=== PATIENT | male | born 1940 | race Caucasian/White ===

== ENCOUNTER 2016-05-21 10:53 | Emergency (ER) | payer MEDICARE, BC ==
[~2016-05-21] VITALS: Ht 175.3 cm; Wt 82.5 kg
[~2016-05-21 10:53] MED LIST: BEN50 PO; PRED20TA PO
[2016-05-21 10:56] VITALS: Ht 175.3 cm; Wt 82.5 kg
[2016-05-21 11:33] LABS: ADD SCAN DIFF NO
[2016-05-21 11:37] LABS: ABNORMAL IP MESSAGE 1; HEMATOCRIT 28.2 % (42.0-52.0); HEMOGLOBIN 8.9 g/dl (14.0-18.0); MEAN CORPUSCULAR HEMOGLOBIN 32.5 pg (29.0-33.0); MEAN CORPUSCULAR HGB CONC 31.6 g/dl (32.0-37.0); MEAN CORPUSCULAR VOLUME 102.9 fl (82.0-101.0); MEAN PLATELET VOLUME 10.7 fl (7.4-10.4); PLATELET COUNT 385 10^3/UL (140-415); RED BLOOD COUNT 2.74 10^6/ul (4.70-6.10); RED CELL DISTRIBUTION WIDTH 20.3 % (11.5-14.5); WHITE BLOOD COUNT 19.3 10^3/ul (4.8-10.8)
[2016-05-21 11:45] LABS: ADD UMIC YES; URINE BILIRUBIN (Dip) NEGATIVE (NEGATIVE); URINE BLOOD (Dip) 1+ (NEGATIVE); URINE COLOR LT. YELLOW (YELLOW); URINE GLUCOSE (Dip) NEGATIVE (NEGATIVE); URINE KETONES (Dip) NEGATIVE (NEGATIVE); URINE LEUKOCYTE ESTERASE (Dip) NEGATIVE (NEGATIVE); URINE NITRITE (Dip) NEGATIVE (NEGATIVE); URINE TOTAL PROTEIN (Dip) NEGATIVE (NEGATIVE); URINE UROBILINOGEN (Dip) 0.2 E.U./dL (0.1-1.0)
[2016-05-21 11:52] LABS: CALCIUM 9.3 mg/dl (8.4-10.2); CREATININE 1.02 mg/dl (0.61-1.24); POTASSIUM 4.9 mmol/L (3.5-5.1)
[2016-05-21 12:07] LABS: BACTERIA,URINE RARE
--- NOTE | 2016-05-21 12:08 | RADRPT ---
PROCEDURE: US Renal CLINICAL INDICATION: Hematuria. TECHNIQUE: Multiple sonographic images of the kidneys and bladder were obtained. Evaluation of th e kidneys and bladder was performed as well with auguste scale and color and Doppler evaluation using a curved array transducer. The images were reviewed on a high-resolution PACS workstation. COMPARISON: 09/16/2049 FINDINGS: The right kidney measures 9.5 cm. The left kidney measures 11.0 cm. There is normal echogenicity within the parenchyma of the kidneys bilaterally. There are no calculi identified. There is mild bilateral hydronephrosis. There is a 2.7 x 2.1 x 2.7 cm right renal cyst. There is a 2.1 x 2.1 x 2.9 cm left renal cyst.. No perinephric fluid collection is seen. There is apparent prostatic enlargement indenting the bladder base. Splenomegaly is visualized. IMPRESSION: 1. Mild bilateral hydronephrosis. 2. Bilateral renal cysts. 3. Prostatomegaly. 4. Incidental visualization of splenomegaly. RPTAT: [facility] Physician Hernesto Date Time Electronically viewed and signed by Physician Hernesto on 05/21/2016 12:08 /
[2016-05-21 13:14] LABS: BASOPHIL # 0.2 10^3/ul (0.0-0.1); EOSINOPHILS # 0.4 10^3/ul (0.0-0.5); LYMPHOCYTES # 2.3 10^3/ul (0.8-2.9); MONOCYTE # 0.4 10^3/ul (0.3-0.9); MYELOCYTES # 0.8
[2016-05-21] MEDS ORDERED: CEPH-443 PO (13:50)
--- NOTE | 2016-05-21 13:54 | ERD ---
ER Documentation Chief Complaint Date/Time DATE: 05/21/16 TIME: 13:51 Chief Complaint DRIPPING BLOOD FROM PENIS X 1 WEEK HPI 76-year-old male presents the emergency department complaining of painless hematuria for 1 week. Patient states that he is able to pass urine, but has dripping of blood from his penis for 1 week. He denies fevers, chills, vomiting. He denies any other bleeding. ROS All systems reviewed and are negative except as per history of present illness. Medications Home Meds Active Scripts Cephalexin* (Keflex*) 500 Mg Capsule, 500 MG PO QID for 5 Days, CAP Prov:MEGHAN,MOR 05/21/16 Prednisone* (Prednisone*) 20 Mg Tab, 60 MG PO DAILY for 5 Days, TAB Prov:MEGHAN,MOR 07/28/15 Diphenhydramine Hcl* (Benadryl*) 50 Mg Cap, 50 MG PO Q6H Y for ITCHING/RASH, # 30 CAP Prov:LUCIANO CHRISTIANSONSON 07/28/15 Prednisone* (Prednisone*) 20 Mg Tab, 60 MG PO DAILY for 4 Days, TAB Prov:MEGHAN,MOR 07/28/15 Diphenhydramine Hcl* (Benadryl*) 50 Mg Cap, 50 MG PO Q6 Y for rash, #30 CAP Prov:MEGHAN,MOR 07/28/15 Diphenhydramine Hcl* (Benadryl*) 50 Mg Cap, 50 MG PO Q6 Y for ITCHING, #20 CAP Prov:NICOLE LUCAS PA-C 07/28/15 Prednisone* (Prednisone*) 20 Mg Tab, 40 MG PO QAM for 4 Days, TAB Start medication tomorrow morning on 07/29/2015 Patient was given first dose in the ER Prov:NICOLE LUCAS PA-C 07/28/15 Allergies Allergies: Coded Allergies: codeine (Verified Allergy, Unknown, 07/28/15) levofloxacin (Verified Allergy, Unknown, 07/28/15) tamsulosin (Verified Allergy, Unknown, 07/28/15) Uncoded Allergies: mushrooms (Allergy, Mild, 08/24/10) PMhx/Soc History of Surgery: Yes (LAP SHERWIN, RENAL STONE) Anesthesia Reaction: No Hx Neurological Disorder: No Hx Respiratory Disorders: No Hx Cardiac Disorders: No Hx Psychiatric Problems: No Hx Miscellaneous Medical Probl: No Hx Alcohol Use: No (SAYS HE QUIT) Hx Substance Use: No Hx Tobacco Use: No (SMOKED A TEENAGER) Smoking Status: Former smoker FmHx Noncontributory for chief complaint Physical Exam Vitals Vital Signs Date Time Temp Pulse Resp B/P Pulse Ox O2 Delivery O2 Flow Rate FiO2 05/21/16 10:56 97.3 81 18 152/67 98 Physical Exam GENERAL: The patient is well developed and appropriate for usual state of health in no apparent distress HEENT: Pupils equal, round, and reactive to light. EOMI. There is no scleral icterus. NECK: C-spine is soft and supple, there is no meningismus. There is no cervical lymphadenopathy. LUNGS: Clear to auscultation bilaterally. There are no rales, wheezes or rhonchi. HEART: Regular rate and rhythm, no murmurs, clicks, rubs or gallops. ABDOMEN: Soft, non-tender, non-distended. There are bowel sounds in all four quadrants. No rebound or guarding. The bladder is not distended. There is no CVA tenderness. : No significant external lesions. EXTREMITIES: There is no peripheral cyanosis or edema. No focal swelling or erythema. NEURO: The patient moves all four extremities with 5/5 strength. Cranial nerves II - XII are intact. Normal gait. Alert and oriented SKIN: There is no apparent rash or petechiae. HEME/LYMPHATIC: There is no evidence of excessive bruising or lymphedema. PSYCHIATRIC: The patient does not appear anxious or depressed. Result Diagram: 05/21/16 1122 05/21/16 1122 Results 24 hrs Laboratory Tests Test 05/21/16 11:22 White Blood Count 19.310^3/ul Red Blood Count 2.7410^6/ul Hemoglobin 8.9g/dl Hematocrit 28.2% Mean Corpuscular Volume 102.9fl Mean Corpuscular Hemoglobin 32.5pg Mean Corpuscular Hemoglobin Concent 31.6g/dl Red Cell Distribution Width 20.3% Platelet Count 08366^3/UL Mean Platelet Volume 10.7fl Neutrophils % 52.0% Band Neutrophils % 17.0% Lymphocytes % 12.0% Reactive Lymphocytes % 2.0% Monocytes % 2.0% Eosinophils % 2.0% Basophils % 1.0% Metamyelocytes % 4.0% Myelocytes % 4.0% Promyelocytes % 3.0% Blast Cells % 1.0% Neutrophils # 10.010^3/ul Lymphocytes # 2.310^3/ul Monocytes # 0.410^3/ul Eosinophils # 0.410^3/ul Basophils # 0.210^3/ul Metamyelocytes # 0.8 Myelocytes # 0.8 Promyelocytes # 0.6 Blastocytes # 0.2 Urine Color LT. YELLOW Urine Clarity CLEAR Urine pH 6.0 Urine Specific [place] 1.020 Urine Ketones NEGATIVE Urine Nitrite NEGATIVE Urine Bilirubin NEGATIVE Urine Urobilinogen 0.2 E.U./dL Urine Leukocyte Esterase NEGATIVE Urine Microscopic RBC 10-25/HPF Urine Microscopic WBC 0-2/HPF Urine Epithelial Cells RARE Urine Bacteria RARE Urine Hemoglobin 1+ Urine Glucose NEGATIVE% Urine Total Protein NEGATIVE Sodium Level 138mmol/L Potassium Level 4.9mmol/L Chloride Level 105mmol/L Carbon Dioxide Level 27mmol/L Anion Gap 11 Blood Urea Nitrogen 19mg/dl Creatinine 1.02mg/dl Glucose Level 96mg/dl Calcium Level 9.3mg/dl Procedures/MDM Patient was taken to a room, seen and evaluated. Comfort measures were initiated. Diagnostic tests were ordered and reviewed. RADIOLOGY: reviewed with the radiologist REEVALUATION: Patient's diagnostic tests were reviewed with the patient. I reviewed the patient's white blood cell count, and he told me he had a history of questionable previous hematologic abnormalities which would be consistent with my findings. At this time, he was offered admission to the hospital for further diagnostic observation given his anemia and elevated white blood cell count, but he continued to be nontoxic and well-appearing. Decision was made jointly with the patient to start him on antibiotics and follow him up in 2 to repeat CBC. I have provided referrals to hematology as well as urology. MEDICAL DECISION MAKIN-year-old male presents the emergency room with painless hematuria. At this time, he shows no evidence of obstruction. He likely has a cystitis. Seems to be complicated by what appears to be hematologic abnormality including an elevated white blood cell count and a mild macrocytic anemia. Given his questionable history of hematologic ab normality is, I suspect this is likely secondary to a hematologic abnormality and not indicative of a severe sepsis. He clearly has no evidence of urinary tract infection on his initial urinalysis with urine culture pending. However, to be on the safe side, I will be starting him on an antibiotic and following closely in 2 days. Departure Diagnosis: Primary Impression: Cystitis Additional Impression: Hematuria Condition: Stable Patient Instructions: Hematuria, Bladder Infection (Cystitis), Male (Child) Additional Instructions: See your doctor for follow-up as discussed. Take a copy of your test results, if appropriate, to this follow-up visit. See your doctor or return here if your symptoms do not improve as expected. At any time, please return to the emergency department for any change or worsening in her symptoms. MOR CHRISTIANSON May 21, 2016 13:53
[2016-05-21 14:17] VITALS: BP 150/79; PULSE 74; RESP 19; TEMP 98.2
== END 2016-05-21 14:19 | disposition home or self-care (01) ==
LOC: FTE 10:53
DX: N30.91 Cystitis, unspecified with hematuria (principal); Z87.891 Personal history of nicotine dependence
CPT/HCPCS: 36415; 76775; 80048; 81001; 81003; 85025; 87086

== ENCOUNTER 2016-09-29 17:31 | Inpatient (IN) | payer MEDICARE, BC ==
[~2016-09-29] VITALS: Ht 154.9 cm; Wt 81.0 kg
[~2016-09-29 17:31] MED LIST changes: +ALBU90AE INHALATION; +ASPI-664 PO; +AUG875 PO; +CEPH-443 PO; +DOXY100T2 PO; +EPIN0.3P4 IM; +ESOM20CA PO; +ESOM40CA PO; +FAMO-96 PO; +HYDR-3498 PO; +HYDR-842 PO; +MAG355OR15 PO; +OMEP20TA55 PO
[2016-09-29 17:34] VITALS: Ht 154.9 cm; Wt 81.0 kg
[2016-09-29] MEDS ORDERED: ASPIRIN 325 MG TAB PO STA (18:35)
--- NOTE | 2016-09-29 18:54 | RADRPT ---
PROCEDURE: XR Chest. CLINICAL INDICATION: Chest Pain. TECHNIQUE: Single frontal view of the chest was obtained COMPARISON: Chest x-ray 03/22/2015 FINDINGS: The cardiomediastinal silhouette is within normal limits. There are atherosclerotic calcifications of the aorta. No pneumothorax, pleural effusion, or consolidation is identified. There is no evidence of pulmonary vascular congestion. There are degenerative changes of the spine. IMPRESSION: 1. No evidence of an acute cardiopulmonary process. 2. Thoracic aortic atherosclerotic disease. RPTAT: QQ Physician Soy Date Time Electronically viewed and signed by Trisha Arce Physician on 09/29/2016 18:54 RC/
[2016-09-29 19:03] LABS: ABNORMAL IP MESSAGE 1; HEMATOCRIT 25.9 % (42.0-52.0); HEMOGLOBIN 8.4 g/dl (14.0-18.0); MEAN CORPUSCULAR HEMOGLOBIN 31.1 pg (29.0-33.0); MEAN CORPUSCULAR HGB CONC 32.4 g/dl (32.0-37.0); MEAN CORPUSCULAR VOLUME 95.9 fl (82.0-101.0); NUCLEATED RED BLOOD CELLS% 0.8 /100WBC (0.0-0.0); PLATELET COUNT 336 10^3/UL (140-415); POSITIVE DIFF @See below; RED CELL DISTRIBUTION WIDTH 22.3 % (11.5-14.5); WHITE BLOOD COUNT 12.6 10^3/ul (4.8-10.8)
[2016-09-29 19:16] LABS: INR 1.19; PARTIAL THROMBOPLASTIN TIME 33.4 Sec (25.0-35.0); PROTIME 15.2 Sec (12.2-14.2); PT RATIO 1.2
[2016-09-29 19:21] LABS: ANION GAP 15 (8-16); BLOOD UREA NITROGEN 22 mg/dl (7-20); CALCIUM 8.7 mg/dl (8.4-10.2); CARBON DIOXIDE 23 mmol/L (21-31); CHLORIDE 104 mmol/L (97-110); CREATININE 1.23 mg/dl (0.61-1.24); GLUCOSE 157 mg/dl (70-220); POTASSIUM 4.3 mmol/L (3.5-5.1); SODIUM 138 mmol/L (135-144)
[2016-09-29 19:33] LABS: B-TYPE NATRIURETIC PEPTIDE 1370 PG/ML (0-450)
[2016-09-29 19:35] LABS: TROPONIN-I < 0.012 ng/ml (0.00-0.12)
[2016-09-29 19:52] LABS: EOSINOPHILS # 0.3 10^3/ul (0.0-0.5); ERYTHROBLAST% (NRBC) (M) 1 % (0-0); MONOCYTE # 0.4 10^3/ul (0.3-0.9); MONOCYTES % (M) 3 % (0-11); MYELOCYTES % (M) 2 % (0.0-0.0); NEUTROPHIL # 9.1 10^3/ul (1.6-7.5)
[2016-09-29] MEDS ORDERED: AZITHROMYCIN 500MG/NS (PMX) 250 ML IVPB ONE (21:30)
[2016-09-29] MEDS ORDERED: CEFTRIAXONE 1 GM/50 ML (PMX) 50 ML IVPB ONE (21:30)
[2016-09-29] MEDS ORDERED: ACETAMINOPHEN 325 MG TAB PO PRN (21:30)
[2016-09-29] MEDS ORDERED: ONDANSETRON 4 MG INJ IV PRN (21:30)
[2016-09-29] MEDS ORDERED: SOD CHLORIDE 0.9% 1,000 ML IV ONE (21:30)
[2016-09-29 22:39] LABS: ADD UMIC NO; UR ASCORBIC ACID 40 mg/dL (NEGATIVE); UR BILIRUBIN (Dip) NEGATIVE (NEGATIVE); UR BLOOD (Dip) NEGATIVE (NEGATIVE); UR CLARITY CLEAR (CLEAR); UR COLOR YELLOW (YELLOW); UR GLUCOSE (Dip) NEGATIVE (NEGATIVE); UR KETONES (Dip) NEGATIVE (NEGATIVE); UR LEUKOCYTE ESTERASE (Dip) NEGATIVE Leu/ul (NEGATIVE); UR NITRITE (Dip) NEGATIVE (NEGATIVE); UR SPECIFIC GRAVITY (Dip) 1.023 (1.003-1.030); UR TOTAL PROTEIN (Dip) NEGATIVE (NEGATIVE); UR UROBILINOGEN (Dip) NEGATIVE (NEGATIVE)
--- NOTE | 2016-09-29 22:50 | ERA ---
ER Documentation Chief Complaint Date/Time DATE: 09/29/16 TIME: 22:43 Chief Complaint Complains of chest congestion and palpitations HX of leukemia HPI This 76-year-old male presents with feeling of chest tightness as well as cough. He also has been feeling palpitations on and off for 3 days. He has some shortness of breath as well. He has a history of leukemia. Denies any fevers or chills. ROS All systems reviewed and are negative except as per history of present illness. Medications Home Meds Active Scripts Cephalexin* (Keflex*) 500 Mg Capsule, 500 MG PO QID for 5 Days, CAP Prov:MEGHANMOR 05/21/16 Prednisone* (Prednisone*) 20 Mg Tab, 60 MG PO DAILY for 5 Days, TAB Prov:MEGHAN,MOR 07/28/15 Diphenhydramine Hcl* (Benadryl*) 50 Mg Cap, 50 MG PO Q6H Y for ITCHING/RASH, # 30 CAP Prov:MEGHANLUCIANOMOR 07/28/15 Prednisone* (Prednisone*) 20 Mg Tab, 60 MG PO DAILY for 4 Days, TAB Prov:MEGHAN,MOR 07/28/15 Diphenhydramine Hcl* (Benadryl*) 50 Mg Cap, 50 MG PO Q6 Y for rash, #30 CAP Prov:MEGHAN,MOR 07/28/15 Diphenhydramine Hcl* (Benadryl*) 50 Mg Cap, 50 MG PO Q6 Y for ITCHING, #20 CAP Prov:NICOLE LUCAS PA-C 07/28/15 Prednisone* (Prednisone*) 20 Mg Tab, 40 MG PO QAM for 4 Days, TAB Start medication tomorrow morning on 07/29/2015 Patient was given first dose in the ER Prov:NICOLE LUCAS PA-C 07/28/15 Allergies Allergies: Coded Allergies: codeine (Verified Allergy, Unknown, 07/28/15) levofloxacin (Verified Allergy, Unknown, 07/28/15) tamsulosin (Verified Allergy, Unknown, 07/28/15) Uncoded Allergies: mushrooms (Allergy, Mild, 08/24/10) PMhx/Soc History of Surgery: Yes (LAP SHERWIN, RENAL STONE) Anesthesia Reaction: No Hx Neurological Disorder: No Hx Respiratory Disorders: No Hx Cardiac Disorders: No Hx Psychiatric Problems: No Hx Miscellaneous Medical Probl: Yes (enlarged prostate, BORDERLINE LEUKEMIA) Hx Alcohol Use: No (SAYS HE QUIT) Hx Substance Use: No Hx Tobacco Use: No (SMOKED A TEENAGER) Smoking Status: Former smoker Physical Exam Vitals Vital Signs Date Time Temp Pulse Resp B/P Pulse Ox O2 Delivery O2 Flow Rate FiO2 09/29/16 22:21 72 17 108/48 98 Room Air 09/29/16 20:13 75 17 114/87 98 Room Air 09/29/16 17:34 97.0 92 20 124/66 99 Physical Exam Const: [] Mild distress, appears uncomfortable Head: Atraumatic Eyes: Normal Conjunctiva ENT: Normal External Ears, Nose and Mouth. Neck: Full range of motion..~ No meningismus. Resp: Mild decreased bibasilar breath sounds, cough on deep inspiration Cardio: Regular rate and rhythm, no murmurs Abd: Soft, non tender, non distended. Normal bowel sounds Skin: No petechiae or rashes Back: No midline or flank tenderness Ext: No cyanosis, or edema Neur: Awake and alert and oriented 3, no focal deficits Psych: Normal Mood and Affect Result Diagram: 09/29/16181409/29/161814 Results 24 hrs Laboratory Tests Test 09/29/16 18:15 09/29/16 21:55 White Blood Count 12.610^3/ul Red Blood Count 2.7010^6/ul Hemoglobin 8.4g/dl Hematocrit 25.9% Mean Corpuscular Volume 95.9fl Mean Corpuscular Hemoglobin 31.1pg Mean Corpuscular Hemoglobin Concent 32.4g/dl Red Cell Distribution Width 22.3% Platelet Count 41337^3/UL Mean Platelet Volume 11.0fl Neutrophils % % Segmented Neutrophils % (Manual) 72% Band Neutrophils % (Manual) 13% Lymphocytes % % Lymphocytes % (Manual) 8% Monocytes % % Monocytes % (Manual) 3% Eosinophils % % Eosinophils % (Manual) 2.0% Basophils % % Myelocytes % (Manual) 2% Nucleated Red Blood Cells % 1% Neutrophils # 9.110^3/ul Neutrophils # (Manual) 910^3/ul Band Neutrophils # 1.610^3/ul Absolute Lymphocytes (Manual) 1.010^3/ul Lymphocytes # 1.010^3/ul Monocytes # 0.410^3/ul Absolute Monocytes (Manual) 0.310^3/ul Eosinophils # 0.310^3/ul Basophils # 10^3/ul Myelocytes # 0.210^3/ul Nucleated Red Blood Cells # 10^3/ul Prothrombin Time 15.2Sec Prothrombin Time Ratio 1.2 INR International Normalized Ratio 1.19 Activated Partial Thromboplast Time 33.4Sec Sodium Level 138mmol/L Potassium Level 4.3mmol/L Chloride Level 104mmol/L Carbon Dioxide Level 23mmol/L Anion Gap 15 Blood Urea Nitrogen 22mg/dl Creatinine 1.23mg/dl Glucose Level 157mg/dl Calcium Level 8.7mg/dl Troponin I < 0.012ng/ml B-Type Natriuretic Peptide 1370PG/ML Urine Color YELLOW Urine Clarity CLEAR Urine pH 5.0 Urine Specific [place] 1.023 Urine Ketones NEGATIVEmg/dL Urine Nitrite NEGATIVEmg/dL Urine Bilirubin NEGATIVEmg/dL Urine Urobilinogen NEGATIVEmg/dL Urine Leukocyte Esterase NEGATIVELeu/ul Urine Hemoglobin NEGATIVEmg/dL Urine Glucose NEGATIVEmg/dL Urine Total Protein NEGATIVEmg/dl Current Medications Medications (Trade) Dose Ordered Sig/Gabby Route PRN Reason Start Time Stop Time Status Last Admin Dose Admin Aspirin (Aspirin) 325 mg ONCE STAT PO 09/29/16 18:35 09/29/16 18:36 DC 09/29/16 18:56 Ondansetron HCl (Zofran Inj) 4 mg ER BRIDGE PRN IV NAUSEA AND/OR VOMITING 09/29/16 21:30 09/30/16 21:29 Acetaminophen 650 mg 650 mg ER BRIDGE PRN PO MILD PAIN/FEVER 09/29/16 21:30 09/30/16 21:29 Sodium Chloride 1,000 ml @ 1,000 mls/hr Q1H ONCE IV 09/29/16 21:30 09/29/16 22:29 DC 09/29/16 22:01 Ceftriaxone Sodium 50 ml @ 100 mls/hr ONCE ONCE IVPB 09/29/16 21:30 09/29/16 21:59 DC 09/29/16 22:01 Azithromycin (Zithromax 500mg/ NS (Pmx)) 250 ml @ 250 mls/hr ONCE ONCE IVPB 09/29/16 21:30 09/29/16 22:29 DC Procedures/MDM Elderly male with chest pain frequent PVCs and sinus arrhythmia. He also has cough and mildly elevated white count. No pneumonia on chest x-ray. Do suspect bronchitis. Patient was given aspirin. Was also given Levaquin IV after cultures were obtained. No signs of sepsis. Will be admitted to telemetry for further workup and monitoring for V. tach or other arrhythmia. Mild CHF. Spoke with Dr. Ortiz will be admitting for Dr. moctezuma to telemetry. EKG 1 interpretation: Sinus rhythm with multiple frequent PVCs with sinus arrhythmia, normal axis, no ST or T-wave changes concerning for acute ischemia. Normal intervals EKG #2 interpretation:Sinus rhythm with sinus arrhythmia and PVCs, normal axis, no ST or T-wave changes concerning for acute ischemia Chest x-ray interpretation: I see no acute process, I see no infiltrate, no pulmonary edema, no pneumothorax, no fractures loan expeditor interpretation: Sinus arrhythmia with multiple and frequent PVCs. No runs of V. tach or other arrhythmias Departure Diagnosis: Primary Impression: Sinus arrhythmia Additional Impressions: Chest pain Bronchitis Normocytic anemia Condition: Serious SHERIE NAYLOR DO Sep 29, 2016 22:50
[2016-09-29 23:21] VITALS: TEMP 98.3
[2016-09-30] VITALS (12 sets, daily range): BP systolic 107–120; BP diastolic 50–62; PULSE 63–81; RESP 18–70
[2016-09-30 03:05] LABS: CREATINE KINASE < 20 IU/L (23-200)
[2016-09-30 03:17] LABS: CK-MB 0.28 ng/ml (0.0-2.4); TROPONIN-I < 0.012 ng/ml (0.00-0.12)
[2016-09-30 06:59] LABS: ABNORMAL IP MESSAGE 1; HEMATOCRIT 21.2 % (42.0-52.0); MEAN CORPUSCULAR HEMOGLOBIN 30.1 pg (29.0-33.0); MEAN CORPUSCULAR HGB CONC 31.1 g/dl (32.0-37.0); MEAN CORPUSCULAR VOLUME 96.8 fl (82.0-101.0); MEAN PLATELET VOLUME 10.9 fl (7.4-10.4); NUCLEATED RED BLOOD CELLS% 0.6 /100WBC (0.0-0.0); PLATELET COUNT 274 10^3/UL (140-415); POSITIVE DIFF @See below; RED BLOOD COUNT 2.19 10^6/ul (4.70-6.10); RED CELL DISTRIBUTION WIDTH 22.5 % (11.5-14.5)
[2016-09-30 07:25] LABS: IRON 76 ug/dl (35-150)
[2016-09-30 07:33] LABS: CREATINE KINASE < 20 IU/L (23-200)
[2016-09-30 07:34] LABS: TOTAL IRON BINDING CAPACITY 211 ug/dl (241-421)
[2016-09-30 07:38] LABS: CK-MB 0.27 ng/ml (0.0-2.4); TROPONIN-I < 0.012 ng/ml (0.00-0.12)
[2016-09-30 07:40] LABS: CALCIUM 8.2 mg/dl (8.4-10.2); CREATININE 0.97 mg/dl (0.61-1.24); POTASSIUM 4.4 mmol/L (3.5-5.1)
[2016-09-30 07:54] LABS: HEMOGLOBIN 6.6 g/dl (14.0-18.0)
[2016-09-30] MEDS: METOPROLOL 25 MG TAB PO SCH (08:36)
[2016-09-30] MEDS: ASPIRIN (EC) 81 MG TAB PO SCH (08:36)
[2016-09-30] MEDS: DOCUSATE SODIUM 100 MG CAP PO SCH (08:36)
[2016-09-30] MEDS ORDERED: ACETAMINOPHEN 325 MG TAB PO SCH (09:30)
[2016-09-30] MEDS ORDERED: DIPHENHYDRAMINE 50 MG INJ IV SCH (09:30)
[2016-09-30] MEDS ORDERED: FUROSEMIDE 20 MG INJ IV SCH (09:30)
--- NOTE | 2016-09-30 09:34 | RADRPT ---
PROCEDURE: XR Chest. CLINICAL INDICATION: Cough. TECHNIQUE: Single frontal chest x-ray. COMPARISON: Chest radiograph 07/28/2015. FINDINGS: The cardiomediastinal silhouette is unremarkable. Aortic atherosclerotic vascular calcifications are identified. No pneumothorax, pleural effusion or consolidation is seen. There are multilevel degenerative changes of thoracic spine with decreased disk spaces and osteophyt osis. IMPRESSION: 1. No acute cardiopulmonary abnormality. 2. Aortic atherosclerosis. RPTAT: JJ .Radha Collins MD, Date Time Electronically viewed and signed by .Radha Collins MD, MD on 09/30/2016 09:34 .N/
[2016-09-30 10:51] LABS: ANISOCYTOSIS 3+ (0-0); GIANT THROMBO% (M) 1 % (0-0); METAMYELOCYTES %M 3 % (0-0); MICROCYTOSIS 3+ (0-0); MONOCYTES % (M) 2 % (0-11); MYELOCYTES % (M) 2 % (0.0-0.0); PLATELET ESTIMATE DECREASED; POIKILOCYTOSIS 3+ (0-0); POLYCHROMASIA 3+ (0-0)
[2016-09-30] MEDS: FERROUS GLUCONATE (EC) 325 MG TAB PO SCH ×2 (11:00→21:56)
--- NOTE | 2016-09-30 12:36 | HP ---
DATE OF ADMISSION: 09/29/2016 ADMISSION DIAGNOSIS: Chest pain, severe anemia. HISTORY OF PRESENT ILLNESS: The patient is a 76-year-old man with myelodysplastic syndrome, Sifuentes's esophagus, history of diastolic dysfunction, who presented to the emergency room with chest tightness and cough. Patient has been having palpitations on and off for the last 3 days, as well and some mild shortness of breath. Patient denies any other symptoms at this point. REVIEW OF SYSTEMS: No fevers, chills, or night sweats. No hematuria. No melena, diarrhea, constipation, nausea or vomiting. No headache. PAST MEDICAL HISTORY: Sifuentes's esophagus, myelodysplastic syndrome, refractory anemia, erectile dysfunction. PAST SURGICAL HISTORY: Status post cystectomy, status post cataract extraction and lens implantation, status post open reduction, internal fixation of right wrist fracture. FAMILY HISTORY: Noncontributory. ALLERGIES: SENSITIVITY TO CODEINE, LEVOFLOXACIN AND TAMSULOSIN. MEDICATIONS: Omeprazole 20 mg daily. SOCIAL HISTORY: He is . No tobacco or alcohol use. PHYSICAL EXAMINATION: Temperature 98.5, respirations of 18, pulse of 68, blood pressure 115/57, oxygen saturation 98 percent on room air. GENERAL: A well-developed, well-nourished male, in no acute distress. Lying in bed. SKIN: Without rashes. Mild pallor. HEENT: EOMI, PERRLA. Oropharynx clear. NECK: No jugular venous distention. 2+ carotid upstrokes, without bruits. CHEST: Bilateral rhonchi that decreased slightly with cough, otherwise clear. No rales. HEART: Regular rate and rhythm with occasional ectopy. No murmurs, gallops, or rubs noted. ABDOMEN: Soft, nontender, nondistended. No hepatomegaly, mild splenomegaly noted. No masses otherwise. EXTREMITIES: No cyanosis, clubbing, or edema. GENITOURINARY: Normal male. No masses. NEUROLOGIC: Nonfocal. LABORATORY AND DIAGNOSTIC DATA: Initial white blood cell count 12.6 with a hemoglobin of 8.4, hematocrit 25.9. Repeat white blood cell count 9.0 with hemoglobin of 6.6, hematocrit 21.2, platelets 274. There is a 17 percent bandemia, 3 percent, metamyelocytes 2 percent myelocytes . Troponin is less than 0.012, x3. Creatine kinase is less than 20. Sodium 142, potassium 4.4, chloride 106, bicarbonate 23, BUN of 17, creatinine 0.7, blood sugar of 87, iron of 76, TIBC 211. Saturation is 36 percent. Chest x-ray shows no clear acute cardiopulmonary abnormality. There is aortic atherosclerosis. No infiltrates, no fluid congestion. DISCUSSION AND DECISION-MAKING: The patient is a 76-year-old male with myelodysplastic syndrome with refractory anemia, who presented with chest pain, shortness of breath and pressure as well as severe anemia. Patient is admitted to Telemetry for further evaluation and treatment. 1. Severe anemia. Patient has refractory anemia secondary to myelodysplastic syndrome. We will type and cross 2 units of packed red blood cells and transfuse 2 units and premedicate the 1st dose with Tylenol and Benadryl. We will follow the 2nd unit with 20 mg of IV push Lasix. We will have Dr. Hameed from Hematology assist with the patient. 2. Chest pain. The patient was ruled out for myocardial infarction. Patient with ectopy as well as a mildly elevated brain natriuretic peptide. Patient with a history of diastolic dysfunction in the past. Post cholecystectomy and had mild heart failure. Will follow the transfusions with Lasix 20 mg IV push. Will also have Cardiology evaluate the patient and assist with any further workup. 3. Sifuentes's esophagus. Will continue the patient's omeprazole or change to pantoprazole for formulary. Dictated By: Almas Rock MD /alicia/ /Document#: [id number]
--- NOTE | 2016-09-30 13:34 | CONS ---
Date/Time of Note Date/Time of Note DATE: 09/30/16 TIME: 13:32 Assessment/Plan Assessment/Plan Additional Assessment/Plan Severe anemia hx of Sifuentes's Esophagitis Atypical chest pain hx of mild chf -Rx PRBC and hematology to be invovled -atypical hx, nromal trops and no acute ischemia -will plan for an echocardiolgram -monitor for arrythmias -lasix between prbc Consultation Date/Type/Reason Admit Date/Time Sep 29, 2016 at 21:18 Social History Smoking Status: Former smoker Exam/Review of Systems Vital Signs Vitals Vital Signs Date Time Temp Pulse Resp B/P Pulse Ox O2 Delivery O2 Flow Rate FiO2 09/30/16 12:09 63 09/30/16 11:17 98.5 18 115/57 98 09/29/16 23:21 Room Air Intake and Output 09/29/16 09/29/16 09/30/16 15:00 23:00 07:00 Intake Total 0 ml Balance 0 ml Results Result Diagram: 09/30/16 0605 09/30/16 0605 Results 24 hrs Laboratory Tests Test 09/29/16 18:15 09/29/16 21:55 09/30/16 01:54 09/30/16 06:05 White Blood Count 12.6 #H 9.0 # Red Blood Count 2.70 L 2.19 L Hemoglobin 8.4 L 6.6 #*L Hematocrit 25.9 L 21.2 L Mean Corpuscular Volume 95.9 96.8 Mean Corpuscular Hemoglobin 31.1 30.1 Mean Corpuscular Hemoglobin Concent 32.4 31.1 L Red Cell Distribution Width 22.3 H 22.5 H Platelet Count 336 274 Mean Platelet Volume 11.0 H 10.9 H Neutrophils % Segmented Neutrophils % (Manual) 72 53 Band Neutrophils % (Manual) 13 H 17 H Lymphocytes % Lymphocytes % (Manual) 8 L 23 Monocytes % Monocytes % (Manual) 3 2 Eosinophils % Eosinophils % (Manual) 2.0 Basophils % Myelocytes % (Manual) 2 H 2 H Nucleated Red Blood Cells % 1 H 0.6 H Neutrophils # 9.1 H Neutrophils # (Manual) 9 H 5 Band Neutrophils # 1.6 H 1.5 H Absolute Lymphocytes (Manual) 1.0 2.0 Lymphocytes # 1.0 Monocytes # 0.4 Absolute Monocytes (Manual) 0.3 0.1 L Eosinophils # 0.3 Basophils # Myelocytes # 0.2 H 0.1 H Nucleated Red Blood Cells # Prothrombin Time 15.2 H Prothrombin Time Ratio 1.2 INR International Normalized Ratio 1.19 Activated Partial Thromboplast Time 33.4 Sodium Level 138 142 Potassium Level 4.3 4.4 Chloride Level 104 106 Carbon Dioxide Level 23 23 Anion Gap 15 17 H Blood Urea Nitrogen 22 H 17 Creatinine 1.23 0.97 Glucose Level 157 87 # Calcium Level 8.7 8.2 L Troponin I < 0.012 < 0.012 < 0.012 B-Type Natriuretic Peptide 1370 H Urine Color YELLOW Urine Clarity CLEAR Urine pH 5.0 Urine Specific [place] 1.023 Urine Ketones NEGATIVE Urine Nitrite NEGATIVE Urine Bilirubin NEGATIVE Urine Urobilinogen NEGATIVE Urine Leukocyte Esterase NEGATIVE Urine Hemoglobin NEGATIVE Urine Glucose NEGATIVE Urine Total Protein NEGATIVE Creatine Kinase < 20 L < 20 L Creatine Kinase Index Creatinine Kinase MB (Mass) 0.28 0.27 Metamyelocytes % (manual) 3 H Metamyelocytes # 0.2 H Thrombocytosis 1 H Platelet Estimate DECREASED Polychromasia 3+ Poikilocytosis 3+ Anisocytosis 3+ Microcytosis 3+ Iron Level 76 Total Iron Binding Capacity 211 L Percent Iron Saturation 36 Medications Medications Current Medications Metoprolol Tartrate (Lopressor) 25 mg DAILY PO Last administered on 09/30/16 08:36; Admin Dose 25 MG; Start 09/30/16 at 09:00 Ferrous Gluconate (Fergon) 325 mg BID PO Last administered on 09/30/16 11:00; Admin Dose 325 MG; Start 09/30/16 at 09:00 Docusate Sodium (Colace) 100 mg DAILY PO Last administered on 09/30/16 08:36; Admin Dose 100 MG; Start 09/30/16 at 09:00 Aspirin (Halfprin) 81 mg DAILY PO Last administered on 09/30/16 08:36; Admin Dose 81 MG; Start 09/30/16 at 09:00 Furosemide (Lasix) 20 mg ONCE IV ; Start 09/30/16 at 09:30; Stop 09/30/16 at 16: 00 Pantoprazole (Protonix Tab) 40 mg DAILY@06 PO ; Start 10/01/16 at 06:00 AMBER WISE MD Sep 30, 2016 13:34
--- NOTE | 2016-09-30 17:54 | RADRPT ---
Echocardiogram Report Patient Name: DONA LOWRY Gender: Male Date: 1940 Study Date: 30-Sep-2016 Ambulatory Care: [facility] [place] Location: 512-A Ref. Physician: AMBER WISE Quality: Adequate Procedures: Transthoracic echocardiogram with complete 2D, M-Mode, and doppler examination. Indications: Congestive Heart Failure. 2D/M Mode Doppler Measurement Value Normal Ranges Measurement Value Normal Ranges LVIDd 2D 4.2 3.5 - 5.6 cm AV Peak Maurice 1.8 m/sec LVIDs 2D 2.8 2.1 - 4.1 cm AV Peak PG 13.0 mmHg FS 2D 35.1 % LVOT Peak Maurice 0.8 m/sec LVPWd 2D 1.3 0.6 - 1.1 cm LVOT Peak PG 3.0 mmHg IVSd 2D 1.3 0.6 - 1.1 cm MV E Peak Maurice 0.9 m/sec IVS/LVPW 2D 1.0 MV A Peak Maurice 0.9 m/sec AoR Diam 2D 2.7 2.0 - 3.7 cm MV E/A 1.0 LA/Ao 2D 1 0 - 1 MV Decel Time 254 msec EDV 2D 76.2 cm3 MV E/A 1.0 ESV 2D 20.8 cm3 TR Peak Maurice 3.1 m/sec LA Dimen 2D 3.7 2.3 - 4.0 cm TR Peak PG 38.0 mmHg RVSP 41.0 mmHg Findings Left Ventricle: Normal left ventricular systolic function. Normal left ventricular cavity size. Mild concentric left ventricular hypertrophy. Ejection fraction is visually estimated at 60 %. Tissue Doppler/Mitral Doppler indices are consistent with impaired relaxation (Stage I diastolic dysfunction). Right Ventricle: Normal right ventricular size. Normal right ventricular systolic function. Left Atrium: The left atrium is normal in size. Right Atrium: The right atrium is normal in size. Mitral Valve: Mitral valve leaflets appear mildly thickened. Mild mitral annular calcification. Aortic Valve: Normal appearance of the aortic valve. No significant aortic stenosis or insufficiency. Tricuspid Valve: Normal appearance of the tricuspid valve. Estimated peak PA systolic pressure 41 mmHg. There is mild tricuspid regurgitation. Pericardium: Normal pericardium with no significant pericardial effusion. Aorta: Normal aortic root. IVC: Normal size and normal respiratory collapse consistent with normal right atrial pressure. Conclusions 1.Normal left ventricular systolic function. Normal left ventricular cavity size. Mild concentric left ventricular hypertrophy. Ejection fraction is visually estimated at 60 %. Tissue Doppler/Mitral Doppler indices are consistent with impaired relaxation (Stage I diastolic dysfunction). 2.Mitral valve leaflets appear mildly thickened. Mild mitral annular calcification. 3.Normal appearance of the aortic valve. No significant aortic stenosis or insufficiency. 4.Normal appearance of the tricuspid valve. Estimated peak PA systolic pressure 41 mmHg. There is mild tricuspid regurgitation. 5.Normal size and normal respiratory collapse consistent with normal right atrial pressure. Electronically Signed By: Ancelmo Sauer 30-Sep-2016 17:54:03 -0700 Patient Name: DONA LOWRY Study Date: 30-Sep-2016 [id number]
[2016-09-30 19:40] LABS: IRON 136 ug/dl (35-150)
[2016-09-30 19:50] LABS: TOTAL IRON BINDING CAPACITY 223 ug/dl (241-421)
[2016-09-30 20:23] LABS: THYROID STIMULATING HORMONE 1.78 MIU/L (0.465-4.680)
[2016-09-30 20:49] LABS: FOLATE 6.8 ng/ml (2.8-20.0)
--- NOTE | 2016-09-30 21:51 | CONS ---
Date/Time of Note Date/Time of Note DATE: 09/30/16 TIME: 21:02 Assessment/Plan Assessment/Plan Chief Complaint/Hosp Course 76yo with #ALON 2+ Myeloproliferative disorder -this appears to be progressing as patient is developing worsening anemia, with a high LDH and leukoerythroblastic picture with left shifted leukocytosis. of note CBC from May did reveal 1% blasts. -will need to evaluate state of MPD with bone marrow bx. -patient's WBC count and platelet are within normal limits so I do not feel Hydrea is indicated -need to evaluate patient's spleen size. will check abed ultrasound #Anemia -likely secondary to progressing myeloproliferative Disorder -need to rule out other causes of anemia. thus far iron studies are within normal limits, no signs of vitamin B12/ folate deficiency, TSH within normal limits -will check Erythropoietin level and Retic count to see if patient would benefit from procrit. will empirically start Procrit 40,000 units q week. first dose now -need to r/o monoclonal gammopathy. f/u SPEP #Chest Pain -improved -appreciate cardiology recs #Sifuentes's Esophagus -cont omeprazole. ok to continue given current counts Problems: (1) Myeloproliferative disorder Status: Chronic (2) Chest pain Status: Acute Consultation Date/Type/Reason Admit Date/Time Sep 29, 2016 at 21:18 Date of Consultation: Sep 30, 2016 Type of Consultation: Hematology Reason for Consultation anemia secondary to myelodysplastic syndrome Referring Provider: JOANA MARIE MD- Hx of Present Illness 76-year-old male with multiple medical problems including myelodysplastic syndrome, Sifuentes's esophagus, history CHF with diastolic dysfunction, who presented to the emergency room with chest pain, cough, palpitations and shortness of breath. In the ER pt presented with a Hg 8.4 which dropped to 6.6 after patient was given hydration. 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 He was first diagnosed 11/2014 when he was undergoing a laparoscopic cholecystectomy when he was found with a WBC count of 20K, Hg 10.1 and platelet count of 529K. Pt is a former smoker and stopped > 40 years ago. Latest CBC done as an outpatient on 06/04/16 reveals a WBC 19K, Hg8.9 and Platelet count of 351K. Since diagnosis, pt has actively observed. Constitutional: no complaints Eyes: no complaints ENT: no complaints Respiratory: shortness of breath Cardiovascular: chest pain Gastrointestinal: no complaints Genitourinary: no complaints Musculoskeletal: bone/joint pain Past Medical History JAK2 + myeloproliferative disorder GERD Sifuentes's Esophagitis Erectile Dysfunction Past Surgical History Lap Kate in 2009 Cataract surgery Right wrist surgery Family History Significant Family History: other (father with kidney cancer) Social History Smoking Status: Former smoker (stopped smoking in 1979) Exam/Review of Systems Vital Signs Vitals Vital Signs Date Time Temp Pulse Resp B/P Pulse Ox O2 Delivery O2 Flow Rate FiO2 09/30/16 20:20 71 09/30/16 19:52 97.8 70 118/54 97 09/29/16 23:21 Room Air Intake and Output 09/29/16 09/29/16 09/30/16 15:00 23:00 07:00 Intake Total 0 ml Balance 0 ml Exam Constitutional: alert, oriented Psych: no complaints Head: normocephalic Eyes: nl conjunctiva ENMT: nl external ears & nose Neck: supple Respiratory: clear to auscultation, normal air movement Cardiovascular: regular rate and rhythm Gastrointestinal: soft, splenomegaly Musculoskeletal: nl extremities to inspection Results Result Diagram: 09/30/16 0605 09/30/16 0605 Results 24 hrs Laboratory Tests Test 09/29/16 21:55 09/30/16 01:54 09/30/16 06:05 09/30/16 18:48 Urine Color YELLOW Urine Clarity CLEAR Urine pH 5.0 Urine Specific [place] 1.023 Urine Ketones NEGATIVE Urine Nitrite NEGATIVE Urine Bilirubin NEGATIVE Urine Urobilinogen NEGATIVE Urine Leukocyte Esterase NEGATIVE Urine Hemoglobin NEGATIVE Urine Glucose NEGATIVE Urine Total Protein NEGATIVE Creatine Kinase < 20 L < 20 L Creatine Kinase Index Creatinine Kinase MB (Mass) 0.28 0.27 Troponin I < 0.012 < 0.012 White Blood Count 9.0 # Red Blood Count 2.19 L Hemoglobin 6.6 #*L Hematocrit 21.2 L Mean Corpuscular Volume 96.8 Mean Corpuscular Hemoglobin 30.1 Mean Corpuscular Hemoglobin Concent 31.1 L Red Cell Distribution Width 22.5 H Platelet Count 274 Mean Platelet Volume 10.9 H Neutrophils % Segmented Neutrophils % (Manual) 53 Band Neutrophils % (Manual) 17 H Lymphocytes % Lymphocytes % (Manual) 23 Monocytes % Monocytes % (Manual) 2 Eosinophils % Basophils % Metamyelocytes % (manual) 3 H Myelocytes % (Manual) 2 H Nucleated Red Blood Cells % 0.6 H Neutrophils # (Manual) 5 Band Neutrophils # 1.5 H Absolute Lymphocytes (Manual) 2.0 Lymphocytes # Monocytes # Absolute Monocytes (Manual) 0.1 L Eosinophils # Basophils # Metamyelocytes # 0.2 H Myelocytes # 0.1 H Nucleated Red Blood Cells # Thrombocytosis 1 H Platelet Estimate DECREASED Polychromasia 3+ Poikilocytosis 3+ Anisocytosis 3+ Microcytosis 3+ Sodium Level 142 Potassium Level 4.4 Chloride Level 106 Carbon Dioxide Level 23 Anion Gap 17 H Blood Urea Nitrogen 17 Creatinine 0.97 Glucose Level 87 # Calcium Level 8.2 L Iron Level 76 Total Iron Binding Capacity 211 L Percent Iron Saturation 36 Ferritin 297.0 H Lactate Dehydrogenase 699 H Vitamin B12 Level 291 Folate 6.8 Thyroid Stimulating Hormone (TSH) 1.780 Test 09/30/16 18:52 Iron Level 136 # Total Iron Binding Capacity 223 L Percent Iron Saturation 61 H Medications Medications Current Medications Metoprolol Tartrate (Lopressor) 25 mg DAILY PO Last administered on 09/30/16 08:36; Admin Dose 25 MG; Start 09/30/16 at 09:00 Ferrous Gluconate (Fergon) 325 mg BID PO Last administered on 09/30/16 11:00; Admin Dose 325 MG; Start 09/30/16 at 09:00 Docusate Sodium (Colace) 100 mg DAILY PO Last administered on 09/30/16 08:36; Admin Dose 100 MG; Start 09/30/16 at 09:00 Aspirin (Halfprin) 81 mg DAILY PO Last administered on 09/30/16 08:36; Admin Dose 81 MG; Start 09/30/16 at 09:00 Pantoprazole (Protonix Tab) 40 mg DAILY@06 PO ; Start 10/01/16 at 06:00 IAIN MACIEL M.D. Sep 30, 2016 21:13
[2016-10-01] VITALS (12 sets, daily range): BP systolic 98–139; BP diastolic 55–69; PULSE 65–92; RESP 17–18
[2016-10-01] MEDS: PANTOPRAZOLE (EC) 40 MG TAB PO SCH (05:53)
[2016-10-01 07:26] LABS: CALCIUM 9.1 mg/dl (8.4-10.2); CREATININE 1.06 mg/dl (0.61-1.24); MAGNESIUM 2.2 mg/dl (1.7-2.5); POTASSIUM 4.5 mmol/L (3.5-5.1)
[2016-10-01] MEDS: ASPIRIN (EC) 81 MG TAB PO SCH (08:07)
[2016-10-01] MEDS: FERROUS GLUCONATE (EC) 325 MG TAB PO SCH ×2 (08:07→20:03)
[2016-10-01] MEDS: DOCUSATE SODIUM 100 MG CAP PO SCH (08:07)
[2016-10-01] MEDS: METOPROLOL 25 MG TAB PO SCH (08:08)
--- NOTE | 2016-10-01 08:10 | PN ---
Date/Time of Note Date/Time of Note DATE: 10/01/16 TIME: 08:09 Assessment/Plan VTE Prophylaxis VTE Prophylaxis Intervention: SCD's Lines/Catheters IV Catheter Type (from Nrs): Saline Lock Urinary Cath still in place: No Assessment/Plan Assessment/Plan Severe anemia/MDS hx of Sifuentes's Esophagitis Atypical chest pain hx of mild chf -Rx PRBC and hematology to be invovled -atypical hx, nromal trops and no acute ischemia with a nromal Ef by echo -monitor for arrythmias -s/p lasix between prbc Subjective 24 Hr Interval Summary Free Text/Dictation The patient with no cehst pain and no sob Exam/Review of Systems Vital Signs Vitals Vital Signs Date Time Temp Pulse Resp B/P Pulse Ox O2 Delivery O2 Flow Rate FiO2 10/01/16 07:29 98.9 60 18 119/56 95 09/29/16 23:21 Room Air Intake and Output 09/30/16 09/30/16 10/01/16 15:00 23:00 07:00 Intake Total 720 ml 300 ml Balance 720 ml 300 ml Results Result Diagram: 09/30/16 0605 10/01/16 0625 Results 24 hrs Laboratory Tests Test 09/30/16 18:48 09/30/16 18:52 10/01/16 06:06 10/01/16 06:25 Ferritin 297.0 H Lactate Dehydrogenase 699 H Vitamin B12 Level 291 Folate 6.8 Thyroid Stimulating Hormone (TSH) 1.780 Iron Level 136 # Total Iron Binding Capacity 223 L Percent Iron Saturation 61 H Lab Scanned Report BLOOD TRANSFUSION Sodium Level 140 Potassium Level 4.5 Chloride Level 106 Carbon Dioxide Level 25 Anion Gap 14 Blood Urea Nitrogen 14 Creatinine 1.06 Glucose Level 91 Calcium Level 9.1 Magnesium Level 2.2 B-Type Natriuretic Peptide 1720 H Medications Medications Current Medications Metoprolol Tartrate (Lopressor) 25 mg DAILY PO Last administered on 09/30/16 08:36; Admin Dose 25 MG; Start 09/30/16 at 09:00 Ferrous Gluconate (Fergon) 325 mg BID PO Last administered on 10/01/16 08:07; Admin Dose 325 MG; Start 09/30/16 at 09:00 Docusate Sodium (Colace) 100 mg DAILY PO Last administered on 10/01/16 08:07; Admin Dose 100 MG; Start 09/30/16 at 09:00 Aspirin (Halfprin) 81 mg DAILY PO Last administered on 10/01/16 08:07; Admin Dose 81 MG; Start 09/30/16 at 09:00 Pantoprazole (Protonix Tab) 40 mg DAILY@06 PO Last administered on 10/01/16 05 :53; Admin Dose 40 MG; Start 10/01/16 at 06:00 AMBER WISE MD Oct 01, 2016 08:10
[2016-10-01 08:18] LABS: ABNORMAL IP MESSAGE 1; HEMATOCRIT 26.5 % (42.0-52.0); HEMOGLOBIN 8.7 g/dl (14.0-18.0); MEAN CORPUSCULAR HEMOGLOBIN 30.5 pg (29.0-33.0); MEAN CORPUSCULAR HGB CONC 32.8 g/dl (32.0-37.0); MEAN PLATELET VOLUME 11.4 fl (7.4-10.4); NUCLEATED RED BLOOD CELLS% 0.6 /100WBC (0.0-0.0); PLATELET COUNT 310 10^3/UL (140-415); POSITIVE DIFF @See below; RED BLOOD COUNT 2.85 10^6/ul (4.70-6.10); RED CELL DISTRIBUTION WIDTH 22.4 % (11.5-14.5); WHITE BLOOD COUNT 11.3 10^3/ul (4.8-10.8)
[2016-10-01] MEDS ORDERED: FUROSEMIDE 20 MG INJ IV ONE (09:00)
[2016-10-01 09:05] LABS: ANISOCYTOSIS 2+ (0-0); BASOPHILS % (M) 1 % (0-2); EOSINOPHILS % (M) 1 % (0-7); METAMYELOCYTES %M 3 % (0-0); MICROCYTOSIS 2+ (0-0); MONOCYTES % (M) 4 % (0-11); MYELOCYTES % (M) 3 % (0.0-0.0); PLATELET ESTIMATE NORMAL; POIKILOCYTOSIS 3+ (0-0); POLYCHROMASIA 1+ (0-0); PROMYELOCYTES #M 0 # (0-0); PROMYELOCYTES % (M) 1 % (0-0)
[2016-10-01] MEDS ORDERED: EPOETIN 10000 UNITS/ML VIAL (ONCOLOGY) SC SCH (10:00)
--- NOTE | 2016-10-01 10:08 | PN ---
DATE: 10/01/2016 SUBJECTIVE: Patient is feeling better but still has some cough and chest congestion but no chest pain. PHYSICAL EXAMINATION: VITAL SIGNS: Temperature 98.9, pulse of 60 with ectopy. Respirations 18, blood pressure 119/56, oxygen saturation 95 percent on room air. CHEST: Clear to auscultation bilaterally. HEART: Regular rate and rhythm with periodic ectopy. ABDOMEN: Soft, nontender, nondistended. EXTREMITIES: No cyanosis, clubbing or edema. LABORATORY EXAMINATION: BNP of 1720. Iron of 136, LDH of 699, ferritin 297. Sodium 140, potassium 4.5, chloride 106, bicarbonate 25, magnesium 2.2, creatinine 1.06, BUN of 14, blood sugar of 91. Hematocrit of 26.5, hemoglobin 8.7, white blood cell count 11.3, platelets of 310,000. ASSESSMENT AND PLAN: 1. Anemia with myelodysplastic syndrome. Patient is likely in midst of transformation and appreciate Dr. Hameed's consultation. Patient is to undergo bone marrow biopsy for further evaluation which may help determine treatment. Patient will receive Epogen today as well and get an abdominal ultrasound to look at the spleen size. 2. Acute Diastolic heart failure remains stable. Will give patient another IV push Lasix and continue patient's telemetry monitoring. Pt's severe anemia likely contributed by causing high output heart failure. 3. Sifuentes's esophagus/gastroesophageal reflux disease. Will continue the patient's pantoprazole. Dictated By: Almas Rock MD /alicia/ale /Document#: [id number] ROMERO
--- NOTE | 2016-10-01 10:25 | RADRPT ---
PROCEDURE: US Abdomen. CLINICAL INDICATION: evalute spleen size, SEE NOTES TECHNIQUE: Multiple real-time images were acquired of the patient's abdomen and retroperitoneum ut ilizing a high resolution transducer. COMPARISON: Abdominal ultrasound 05/21/2016 FINDINGS: The liver is mildly enlarged, measuring 17.6 cm at the right midclavicular line. The liver echogeni city is within normal limits. A small cyst measuring 1.1 cm x 1.0 cm by 1.1 cm is seen within the l eft hepatic lobe. No discrete solid hepatic mass is identified. There is no evidence of intrahepat ic biliary ductal dilatation. The main portal vein is patent with appropriately directed flow by col or Doppler. The gallbladder is not seen , consistent with reported history of prior cholecystectomy. The common bile duct is minimally dilated, measuring 7.2 mm in diameter. Mild extrahepatic ductal di latation is commonly seen post cholecystectomy. The pancreas was obscured by overlying bowel gas and could not be evaluated. The right kidney measures 9.9 cm in length. An exophytic cyst is again seen arising from the inferio r pole of the right kidney, currently measuring 2.4 cm x 2.3 cm (previously 2.7 cm x 2.7 cm x 2.1 cm ). No right hydronephrosis or right nephrolithiasis is seen. The left kidney measures 11.7 cm in length. There is mild left hydronephrosis, similar to prior olivia dy. Again seen is a left upper pole renal cyst currently measuring 1.5 cm x 3.2 cm (previously 2.1 cm x 2.1 cm x 2.9 cm). No left nephrolithiasis is seen. The spleen is enlarged, measuring up to 19.4 cm in length. The calculated spleen volume is 1900 mL. A rounded hyperechoic lesion in the spleen measuring 1.5 cm x 1.7 cm x 1.5 cm with associated mild posterior acoustic enhancement is likely represents a splenic hemangioma or cyst. No free fluid is identified. The proximal aorta measures 2.8 cm in diameter. The mid aorta measures 1.8 cm in diameter. The dis boone aorta tapers normally. Mild aortic lumen irregularity is consistent with atherosclerotic diseas e. IMPRESSION: 1. Splenomegaly, as described above. 2. Mild hepatomegaly. 3. Mild left hydronephrosis, unchanged. No evidence of right hydronephrosis. 4. Bilateral renal cysts. 5. Small left hepatic cyst. 6. Probable small splenic hemangioma measuring up to 1.7 cm. 7. Status post cholecystectomy with minimal dilatation of the common bile duct, commonly seen post c holecystectomy. No intrahepatic biliary ductal dilatation. RPTAT: GG Trisha Arce Physician Date Time Electronically viewed and signed by Trisha Arce, Physician on 10/01/2016 10:24 RC/
[2016-10-02] VITALS (16 sets, daily range): BP systolic 100–132; BP diastolic 54–72; PULSE 60–76; RESP 12–22
[2016-10-02 05:18] LABS: PROTEIN, TOTAL 5.6 g/dL (6.1-8.1)
[2016-10-02] MEDS: PANTOPRAZOLE (EC) 40 MG TAB PO SCH (06:00)
[2016-10-02 07:15] LABS: CALCIUM 9.2 mg/dl (8.4-10.2); CREATININE 1.1 mg/dl (0.61-1.24); MAGNESIUM 2.2 mg/dl (1.7-2.5); POTASSIUM 4.4 mmol/L (3.5-5.1)
[2016-10-02] MEDS: DOCUSATE SODIUM 100 MG CAP PO SCH (09:00)
[2016-10-02] MEDS: FERROUS GLUCONATE (EC) 325 MG TAB PO SCH ×2 (09:00→20:45)
[2016-10-02] MEDS: ASPIRIN (EC) 81 MG TAB PO SCH (09:22)
[2016-10-02] MEDS: METOPROLOL 25 MG TAB PO SCH (09:23)
[2016-10-02] MEDS ORDERED: PROPOFOL 100 ML ONE (13:10)
[2016-10-02] MEDS ORDERED: EPHEDrine SULFATE 50 MG/5 ML SYG ONE (13:10)
[2016-10-02] MEDS ORDERED: LIDOCAINE 2% (SDV) 5 ML INJ ONE (13:10)
[2016-10-02] MEDS ORDERED: PHENYLephrine (100 MCG/ML) 5ML SYG ONE (13:11)
[2016-10-02] MEDS ORDERED: LIDOCAINE 1% (MDV) 20 ML INJ ONE (13:11)
--- NOTE | 2016-10-02 14:02 | RADRPT ---
PROCEDURE: CT guided bone marrow aspiration and left iliac bone biopsy. CLINICAL INDICATION: History of pancytopenia. TECHNIQUE: Informed consent was obtained. The procedure, risks, benefits, complications and alternatives were e xplained to the patient. Risks including bleeding and infection were explained. The patient understo od and was willing to proceed. A procedural pause was performed. The patient's name, date of , and procedure to be performed were verified. One or more of the following dose reduction techni ques were used: Automated exposure control, adjustment of the mA and/or kV according to patient size , use of iterative reconstruction technique. Using local anesthetic, sterile technique and CT guidance, an 11-gauge On Control bone biopsy needle was advanced into the left iliac bone via a posterior approach. Bone marrow aspiration was perform ed yielding approximately 10 ml. The bone biopsy needle was then advanced an additional 4 cm using the power drill device and tissue was obtained. Adequate tissue was obtained according to the patho logist present during the procedure. The needle was removed. A postprocedural scan was performed. A dressing was applied. The patient tolerated procedure well. COMPARISON: None. FINDINGS: Initial images demonstrate the tip of the needle at the posterior margin of the left iliac bone. Henley bsequent images demonstrate the needle within the bone. Post biopsy images demonstrate no immediate complication. IMPRESSION: 1. Successful CT guided bone marrow aspiration and biopsy. RPTAT: QQ .Raul Hall MD, Date Time Electronically viewed and signed by .Raul Hall MD, on 10/02/2016 14:01 .R/
[2016-10-02] MEDS ORDERED: ONDANSETRON 4 MG INJ IV PRN (14:30)
[2016-10-02] MEDS ORDERED: FENTAnyl 50 MCG/ML VIAL IV PRN ×3 (14:30)
[2016-10-02 16:55] LABS: ABNORMAL PROTEIN BAND 1 0.1 g/dL (NONE DETECTED); ALBUMIN 3.7 g/dL (3.8-4.8)
--- NOTE | 2016-10-02 23:21 | CONS ---
Date/Time of Note Date/Time of Note DATE: 10/02/16 TIME: 23:17 Assessment/Plan Assessment/Plan Chief Complaint/Hosp Course Chief Complaint/Hosp Course 76yo with #ALON 2+ Myeloproliferative disorder -this appears to be progressing as patient is developing worsening anemia, with a high LDH and leukoerythroblastic picture with left shifted leukocytosis. of note CBC from May did reveal 1% blasts. -will need to evaluate state of MPD with bone marrow bx. s/p bone marrow bx today -patient's WBC count and platelet are within normal limits so I do not feel Hydrea is indicated -abd ultrasound is consistent with enlarged spleen -from a heme standpoint patient may be discharged to follow up results of the bone marrow bx in our clinic #Anemia -likely secondary to progressing myeloproliferative Disorder -need to rule out other causes of anemia. thus far iron studies are within normal limits, no signs of vitamin B12/ folate deficiency, TSH within normal limits -wi continue Procrit 40,000 units q week. first dose given yesterday -need to r/o monoclonal gammopathy. f/u SPEP #Chest Pain -improved -appreciate cardiology recs #Sifuentes's Esophagus -cont omeprazole. ok to continue given current counts Problems: (1) Myeloproliferative disorder Status: Chronic (2) Chest pain Status: Acute Problems: Consultation Date/Type/Reason Admit Date/Time Sep 29, 2016 at 21:18 Initial Consult Date 09/30/16 Type of Consultation: Hematology Reason for Consultation myelodysplastic syndrome Referring Provider: JOANA MARIE MD- 24 HR Interval Summary Free Text/Dictation pt feels well this morning. no complaints. Exam/Review of Systems Vital Signs Vitals Vital Signs Date Time Temp Pulse Resp B/P Pulse Ox O2 Delivery O2 Flow Rate FiO2 10/02/16 20:18 98.6 72 17 132/63 98 10/02/16 14:39 Room Air Intake and Output 10/01/16 10/01/16 10/02/16 15:00 23:00 07:00 Intake Total 180 ml Balance 180 ml Exam Constitutional: alert, oriented Psych: no complaints Head: normocephalic Eyes: nl conjunctiva ENMT: nl external ears & nose Neck: supple Respiratory: clear to auscultation Cardiovascular: regular rate and rhythm Gastrointestinal: soft Musculoskeletal: nl extremities to inspection Results Result Diagram: 10/01/1662210/02/16611 Results 24 hrs Laboratory Tests Test 10/02/16 00:30 10/02/16 06:12 Stool Occult Blood NEGATIVE Sodium Level 139 Potassium Level 4.4 Chloride Level 105 Carbon Dioxide Level 26 Anion Gap 12 Blood Urea Nitrogen 16 Creatinine 1.10 Glucose Level 93 Calcium Level 9.2 Magnesium Level 2.2 B-Type Natriuretic Peptide 1290 H Medications Medications Current Medications Metoprolol Tartrate (Lopressor) 25 mg DAILY PO Last administered on 10/02/16 09:23; Admin Dose 25 MG; Start 09/30/16 at 09:00 Ferrous Gluconate (Fergon) 325 mg BID PO Last administered on 10/02/16 20:45; Admin Dose 325 MG; Start 09/30/16 at 09:00 Docusate Sodium (Colace) 100 mg DAILY PO Last administered on 10/01/16 08:07; Admin Dose 100 MG; Start 09/30/16 at 09:00 Aspirin (Halfprin) 81 mg DAILY PO Last administered on 10/02/16 09:22; Admin Dose 81 MG; Start 09/30/16 at 09:00 Pantoprazole (Protonix Tab) 40 mg DAILY@06 PO Last administered on 10/01/16 05 :53; Admin Dose 40 MG; Start 10/01/16 at 06:00 Epoetin George (Epogen (Oncology)) 40,000 units Tu@17 SC ; Start 10/08/16 at 17:00 IAIN MACIEL M.D. Oct 02, 2016 23:21
[2016-10-03 00:04] VITALS: PULSE 100
[2016-10-03 00:56] VITALS: BP_SYST 123; BP_SYST 130; BP_DIAS 64; BP_DIAS 77; RESP 19
[2016-10-03 04:03] VITALS: PULSE 68
[2016-10-03 05:04] VITALS: BP 123/62; RESP 18
[2016-10-03] MEDS: PANTOPRAZOLE (EC) 40 MG TAB PO SCH (06:09)
[2016-10-03 07:34] LABS: ABNORMAL IP MESSAGE 1; BASOPHIL # 0.1 10^3/ul (0.0-0.1); BASOPHILS % 0.6 % (0.0-2.0); EOSINOPHILS # 0.2 10^3/ul (0.0-0.5); EOSINOPHILS % 2.3 % (0.0-7.0); HEMATOCRIT 26.2 % (42.0-52.0); HEMOGLOBIN 8.6 g/dl (14.0-18.0); LYMPHOCYTES # 1.4 10^3/ul (0.8-2.9); LYMPHOCYTES % 14.7 % (15.0-51.0); MEAN CORPUSCULAR HEMOGLOBIN 30.9 pg (29.0-33.0); MEAN CORPUSCULAR HGB CONC 32.8 g/dl (32.0-37.0); MEAN CORPUSCULAR VOLUME 94.2 fl (82.0-101.0); MONOCYTE # 0.7 10^3/ul (0.3-0.9); MONOCYTES % 7.1 % (0.0-11.0); NEUTROPHILS % 62.4 % (39.0-77.0); NUCLEATED RED BLOOD CELLS # 0.1 10^3/ul (0.0-0.0); NUCLEATED RED BLOOD CELLS% 0.7 /100WBC (0.0-0.0); PLATELET COUNT 270 10^3/UL (140-415); POSITIVE DIFF @See below; RED BLOOD COUNT 2.78 10^6/ul (4.70-6.10); RED CELL DISTRIBUTION WIDTH 21.7 % (11.5-14.5); WHITE BLOOD COUNT 9.6 10^3/ul (4.8-10.8)
[2016-10-03 07:42] VITALS: BP 119/62; RESP 19
--- NOTE | 2016-10-03 07:55 | PN ---
Date/Time of Note Date/Time of Note DATE: 10/03/16 TIME: 07:54 Assessment/Plan VTE Prophylaxis VTE Prophylaxis Intervention: SCD's Lines/Catheters IV Catheter Type (from Nrs): Peripheral IV Urinary Cath still in place: No Assessment/Plan Assessment/Plan Severe anemia/MDS hx of Sifuentes's Esophagitis Atypical chest pain hx of mild chf -s/p PRBC and hematology to be invovled -atypical hx, nromal trops and no acute ischemia with a nromal Ef by echo -monitor for arrythmias Subjective 24 Hr Interval Summary Free Text/Dictation the patient stable overnight Exam/Review of Systems Vital Signs Vitals Vital Signs Date Time Temp Pulse Resp B/P Pulse Ox O2 Delivery O2 Flow Rate FiO2 10/03/16 07:42 97.8 56 19 119/62 97 10/02/16 14:39 Room Air Intake and Output 10/02/16 10/02/16 10/03/16 15:00 23:00 07:00 Intake Total 250 ml 200 ml Output Total 240 ml Balance 10 ml 200 ml Results Result Diagram: 10/03/16 0616 10/02/16 0612 Results 24 hrs Laboratory Tests Test 10/03/16 06:16 White Blood Count 9.6 Red Blood Count 2.78 L Hemoglobin 8.6 L Hematocrit 26.2 L Mean Corpuscular Volume 94.2 Mean Corpuscular Hemoglobin 30.9 Mean Corpuscular Hemoglobin Concent 32.8 Red Cell Distribution Width 21.7 H Platelet Count 270 Mean Platelet Volume 11.0 H Neutrophils % 62.4 Lymphocytes % 14.7 L Monocytes % 7.1 Eosinophils % 2.3 Basophils % 0.6 Nucleated Red Blood Cells % 0.7 H Neutrophils # (Manual) 6 Lymphocytes # 1.4 Monocytes # 0.7 Eosinophils # 0.2 Basophils # 0.1 Nucleated Red Blood Cells # 0.1 H Medications Medications Current Medications Metoprolol Tartrate (Lopressor) 25 mg DAILY PO Last administered on 10/02/16 09:23; Admin Dose 25 MG; Start 09/30/16 at 09:00 Ferrous Gluconate (Fergon) 325 mg BID PO Last administered on 10/02/16 20:45; Admin Dose 325 MG; Start 09/30/16 at 09:00 Docusate Sodium (Colace) 100 mg DAILY PO Last administered on 10/01/16 08:07; Admin Dose 100 MG; Start 09/30/16 at 09:00 Aspirin (Halfprin) 81 mg DAILY PO Last administered on 10/02/16 09:22; Admin Dose 81 MG; Start 09/30/16 at 09:00 Pantoprazole (Protonix Tab) 40 mg DAILY@06 PO Last administered on 10/03/16 06 :09; Admin Dose 40 MG; Start 10/01/16 at 06:00 Epoetin George (Epogen (Oncology)) 40,000 units Tu@17 SC ; Start 10/08/16 at 17:00 AMBER WISE MD Oct 03, 2016 07:55
[2016-10-03 08:14] VITALS: PULSE 79
[2016-10-03] MEDS: METOPROLOL 25 MG TAB PO SCH (08:40)
[2016-10-03] MEDS: FERROUS GLUCONATE (EC) 325 MG TAB PO SCH (08:40)
[2016-10-03] MEDS: ASPIRIN (EC) 81 MG TAB PO SCH (08:40)
[2016-10-03] MEDS ORDERED: FERGON PO (08:46)
--- NOTE | 2016-10-03 08:48 | PDOCDIS ---
Discharge Instructions DIAGNOSIS Discharge Diagnosis severe anemia/myelodysplastic syndrome CONDITION Patient Condition: Good HOME CARE INSTRUCTIONS: Diet Instructions: Regular ACTIVITY: Activity Restrictions: No Restrictions FOLLOW UP/APPOINTMENTS Follow-up Plan 1.f/u with Dr. Rock within 4wks 2.f/u with Dr. Meeks weekly for procrit injectioins; call for appts JOANA ROCK MD- Oct 03, 2016 08:48
[2016-10-03 09:15] LABS: CALCIUM 9.1 mg/dl (8.4-10.2); CREATININE 1.09 mg/dl (0.61-1.24); POTASSIUM 4.4 mmol/L (3.5-5.1)
--- NOTE | 2016-10-03 09:16 | PN ---
DATE: 10/03/2016 SUBJECTIVE DATA: Patient is feeling well without complaints. OBJECTIVE DATA: VITAL SIGNS: 97.8 temperature, pulse of 56, respirations 19, blood pressure 119/62, oxygen saturation 97 percent on room air. GENERAL: Well-developed, well-nourished male, in no acute distress, sitting in bed. CHEST: Clear to auscultation bilaterally. HEART: Regular rate and rhythm with periodic ectopy. ABDOMEN: Soft, nontender, nondistended. Left iliac crest biopsy site clean, dry and intact without drainage or tenderness. LABORATORY AND DIAGNOSTIC DATA: Hemoglobin of 8.6, hematocrit 26.2, white blood cell count 9.6, platelets 270. ASSESSMENT AND PLAN: 1. Severe anemia secondary to myelodysplastic syndrome. The patient is remaining stable without further drop in his hematocrit. The patient is status post biopsy done yesterday. We will have to wait results for that. Patient was started on Procrit and will follow up with Dr. Hameed for future once weekly Procrit injections. 2. Acute diastolic heart failure, resolved. Patient is doing well and does not require further daily medications as this was brought on by his severe anemia. 3. Sifuentes's esophagus. Continue patient's diet and medications. DISCHARGE PLANNING: Patient is stable for discharge home. Follow up with Dr. Rock within [address] Hameed within 1 week. Dictated By: Almas Rock MD /[email or web address] /Document#: [id number]
--- NOTE | 2016-10-03 21:57 | CONS ---
Date/Time of Note Date/Time of Note DATE: 10/03/16 TIME: 21:53 Assessment/Plan Assessment/Plan Chief Complaint/Hosp Course 76yo with #ALON 2+ Myeloproliferative disorder -bone marrow bx confirms myelofibrosis -will continue epogen as an out patient. will likely need to start JAKAFI as an out patient to help with splenomegaly and help to stabilize the counts -this appears to be progressing as patient is developing worsening anemia, with a high LDH and leukoerythroblastic picture with left shifted leukocytosis. of note CBC from May did reveal 1% blasts. -abd ultrasound is consistent with enlarged spleen -from a heme standpoint patient may be discharged to follow up results of the bone marrow bx in our clinic #Anemia -likely secondary to progressing myeloproliferative Disorder -need to rule out other causes of anemia. thus far iron studies are within normal limits, no signs of vitamin B12/ folate deficiency, TSH within normal limits -will continue Procrit 40,000 units q week. first dose given yesterday #Chest Pain -improved -appreciate cardiology recs #Sifuentes's Esophagus -cont omeprazole. ok to continue given current counts Problems: (1) Myeloproliferative disorder Status: Chronic (2) Chest pain Status: Acute Problems: Problems: Consultation Date/Type/Reason Admit Date/Time Sep 29, 2016 at 21:18 Initial Consult Date 09/30/16 Type of Consultation: Hematology Reason for Consultation myelodysplastic syndrome/ anemia Referring Provider: JOANA MARIE MD- 24 HR Interval Summary Free Text/Dictation pt Hg is stable since blood transfusion Exam/Review of Systems Vital Signs Vitals Vital Signs Date Time Temp Pulse Resp B/P Pulse Ox O2 Delivery O2 Flow Rate FiO2 10/03/16 08:14 79 10/03/16 07:42 97.8 19 119/62 97 10/02/16 14:39 Room Air Intake and Output 10/02/16 10/02/16 10/03/16 15:00 23:00 07:00 Intake Total 250 ml 200 ml Output Total 240 ml Balance 10 ml 200 ml Exam Constitutional: alert Psych: no complaints Head: normocephalic Eyes: nl conjunctiva ENMT: nl external ears & nose Neck: supple Cardiovascular: No S3, No S4, No bruits, No diastolic murmur, No edema, No gallop, No irregular rhythm, No jugular venous distention (JVD), No murmurs/ extra sounds, No nl pulses, No other, No regular rate and rhythm, No rub, No systolic murmur Gastrointestinal: soft, splenomegaly, No hepatomegaly Results Result Diagram: 10/03/16 0616 10/03/16 0616 Results 24 hrs Laboratory Tests Test 10/03/16 06:16 White Blood Count 9.6 Red Blood Count 2.78 L Hemoglobin 8.6 L Hematocrit 26.2 L Mean Corpuscular Volume 94.2 Mean Corpuscular Hemoglobin 30.9 Mean Corpuscular Hemoglobin Concent 32.8 Red Cell Distribution Width 21.7 H Platelet Count 270 Mean Platelet Volume 11.0 H Neutrophils % 62.4 Lymphocytes % 14.7 L Monocytes % 7.1 Eosinophils % 2.3 Basophils % 0.6 Nucleated Red Blood Cells % 0.7 H Neutrophils # (Manual) 6 Lymphocytes # 1.4 Monocytes # 0.7 Eosinophils # 0.2 Basophils # 0.1 Nucleated Red Blood Cells # 0.1 H Sodium Level 139 Potassium Level 4.4 Chloride Level 106 Carbon Dioxide Level 23 Anion Gap 14 Blood Urea Nitrogen 19 Creatinine 1.09 Glucose Level 96 Calcium Level 9.1 B-Type Natriuretic Peptide 1230 H IAIN MACIEL M.D. Oct 03, 2016 21:57
[2016-10-08] MEDS ORDERED: EPOETIN 10000 UNITS/ML VIAL (ONCOLOGY) SC SCH (17:00)
== END 2016-10-03 10:21 | disposition home or self-care (01) | DRG 811 ==
LOC: E/R 17:31 → TEL 21:18
PROVIDERS: ADMIT Internal Medicine; ATTEND Internal Medicine
PROC: 30233N1 Transfusion of Nonautologous Red Blood Cells into Peripheral Vein, Percutaneous Approach (ICD-10-PCS; 2016-09-30)
PROC: 07DR3ZX Extraction of Iliac Bone Marrow, Percutaneous Approach, Diagnostic (ICD-10-PCS; principal; 2016-10-02)
DX: D46.9 Myelodysplastic syndrome, unspecified (principal); I50.31 Acute diastolic (congestive) heart failure; Z87.891 Personal history of nicotine dependence; Z80.51 Family history of malignant neoplasm of kidney; R07.89 Other chest pain; K22.70 Barrett's esophagus without dysplasia; K21.9 Gastro-esophageal reflux disease without esophagitis; E66.9 Obesity, unspecified; Z68.33 Body mass index [BMI] 33.0-33.9, adult
CPT/HCPCS: 36415; 36430; 71010; 76700; 77012; 80048; 81003; 82270; 82550; 82553; 82607; 82668; 82728; 82746; 83540; 83615; 83735; 83880; 84155; 84165; 84443; 84484; 85025; 85610; 85730; 86644; 86850; 86900; 86901; 86920; 87040; 87086; 88305; 88313; 93005; 93306; 96374; 96375; J0885; J1940; J0456; J0696; J1200; J2370; J3010; J7030; P9016